=== PATIENT | male | born 1980 | race Caucasian/White ===

== ENCOUNTER 2021-02-09 07:35 | Day surgery (SDC) | payer OTHER, SELFPAY ==
[~2021-02-09] VITALS: Ht 177.8 cm; Wt 113.4 kg
[2021-02-09] MEDS ORDERED: MIDAZOLAM 5 MG/5 ML VIAL ONE (10:26)
[2021-02-09] MEDS ORDERED: fentaNYL citrate 0.05 MG/ML VIAL ONE (10:26)
[2021-02-09] MEDS ORDERED: MIDAZOLAM 2 MG/2 ML VIAL ONE (10:26)
[2021-02-09] MEDS ORDERED: LIDOCAINE 2% 100 MG/5 ML UJET TP ONE ×2 (10:27→13:50)
[2021-02-09] MEDS ORDERED: MIDAZOLAM 2 MG/2 ML VIAL IVP ONE (13:50)
== END 2021-02-09 12:15 | disposition home or self-care (01) ==
LOC: MLB 07:35 → MMU 07:35 → MLB 12:15
PROVIDERS: ATTEND Internal Medicine Gastroenterology
DX: R19.4 Change in bowel habit (principal); R10.13 Epigastric pain; K20.90 Esophagitis, unspecified without bleeding; K29.70 Gastritis, unspecified, without bleeding; K29.80 Duodenitis without bleeding; F32.9 Major depressive disorder, single episode, unspecified; F17.200 Nicotine dependence, unspecified, uncomplicated; Z86.73 Personal history of transient ischemic attack (TIA), and cerebral infarction without residual deficits; Z95.5 Presence of coronary angioplasty implant and graft; Z79.899 Other long term (current) drug therapy; Z20.822 Contact with and (suspected) exposure to COVID-19
CPT/HCPCS: 36415; 45330; 86677; J2250; J3010; U0003